=== PATIENT | female | born 2000 | race Caucasian/White ===

== ENCOUNTER 2020-08-04 23:14 | Emergency (ER) | payer OTHER ==
[~2020-08-04] VITALS: Ht 172.7 cm; Wt 103.0 kg
[2020-08-05 00:49] LABS: BASOPHILS % 0.5 % (0.0-2.0); CHLORIDE 107 mEq/L (98-107); EOSINOPHILS % 2.4 % (0.0-5.0); HEMATOCRIT. 36.1 % (36.0-48.0); HEMOGLOBIN. 12.5 g/dL (12.0-16.0); LYMPHOCYTES % 22.8 % (20.0-50.0); MEAN CORPUSCULAR HEMOGLOBIN 28.7 pg (28.0-32.0); MEAN PLATELET VOLUME 8.5 fl (7.4-10.4); NEUTROPHILS % 67.3 % (40.0-76.0); PLATELET 363 x1000/uL (130-400); RED BLOOD CELL COUNT 4.35 mill/uL (4.2-5.4); RED CELL DISTRIBUTION WIDTH 14.3 % (11.6-14.6)
[2020-08-05 03:45] VITALS: BP 116/79
== END 2020-08-05 03:45 | disposition home or self-care (01) ==
LOC: ER 23:14
DX: R20.0 Anesthesia of skin (principal); R42 Dizziness and giddiness
CPT/HCPCS: 36415; 73080; 80048; 81025; 83735; 85025; 99285; Z7610

== ENCOUNTER 2021-06-13 17:37 | Emergency (ER) | payer MEDICAID, OTHER ==
[~2021-06-13] VITALS: Ht 154.9 cm; Wt 104.0 kg
[2021-06-13 19:33] LABS: BASOPHILS % 0.4 % (0.0-2.0); EOSINOPHILS % 1.8 % (0.0-5.0); HEMATOCRIT. 41.2 % (36.0-48.0); HEMOGLOBIN. 13.7 g/dL (12.0-16.0); LYMPHOCYTES % 24.5 % (20.0-50.0); MEAN CORPUSCULAR HEMOGLOBIN 30.3 pg (28.0-32.0); MEAN CORPUSCULAR VOLUME 91.2 fL (81.0-99.0); MEAN PLATELET VOLUME 8.2 fl (7.4-10.4); MONOCYTES % 7.3 % (2.0-8.0); PLATELET 392 x1000/uL (130-400); RED BLOOD CELL COUNT 4.52 mill/uL (4.2-5.4); RED CELL DISTRIBUTION WIDTH 16.1 % (11.6-14.6)
[2021-06-13 19:45] LABS: CHLORIDE 111 mEq/L (98-107)
[2021-06-13 20:10] VITALS: BP 128/78
== END 2021-06-13 20:10 | disposition home or self-care (01) ==
LOC: ER 17:37
DX: R20.2 Paresthesia of skin (principal)
CPT/HCPCS: 36415; 80048; 82962; 85025; 99283

== ENCOUNTER 2021-06-16 21:05 | Emergency (ER) | payer MEDICAID, OTHER ==
[~2021-06-16] VITALS: Ht 154.9 cm; Wt 109.7 kg
[2021-06-16 21:12] VITALS: BP 114/81
[2021-06-16] MEDS ORDERED: ACETAMINOPHEN 325MG TABLET PO ONE (21:45)
[2021-06-16] MEDS ORDERED: LORAZEPAM 0.5MG TABLET PO ONE (21:45)
== END 2021-06-17 00:15 | disposition left against medical advice (07) ==
LOC: ER 21:05
DX: F41.9 Anxiety disorder, unspecified (principal); Z68.42 Body mass index [BMI] 45.0-49.9, adult
CPT/HCPCS: 99281

== ENCOUNTER 2021-12-17 04:11 | Inpatient (IN) | payer MEDICAID, OTHER ==
[~2021-12-17] VITALS: Ht 154.9 cm; Wt 103.0 kg
[2021-12-17 05:55] LABS: BASOPHILS % 0.4 % (0.0-2.0); EOSINOPHILS % 4.3 % (0.0-5.0); HEMATOCRIT. 38.5 % (36.0-48.0); HEMOGLOBIN. 12.9 g/dL (12.0-16.0); LYMPHOCYTES % 30.6 % (20.0-50.0); MEAN CORPUSCULAR HEMOGLOBIN 29.6 pg (28.0-32.0); MEAN CORPUSCULAR VOLUME 88.4 fL (81.0-99.0); MEAN PLATELET VOLUME 8.3 fl (7.4-10.4); MONOCYTES % 6.1 % (2.0-8.0); NEUTROPHILS % 58.6 % (40.0-76.0); PLATELET 367 x1000/uL (130-400); RED BLOOD CELL COUNT 4.35 mill/uL (4.2-5.4); RED CELL DISTRIBUTION WIDTH 14.4 % (11.6-14.6)
[2021-12-17 06:05] LABS: CHLORIDE 105 mEq/L (98-107)
[2021-12-17 06:26] LABS: CLARITY URINE CLEAR (CLEAR); COLOR URINE YELLOW (YELLOW); KETONES URINE NEGATIVE (NEGATIVE); LEUKOCYTE ESTERASE URINE TRACE (NEGATIVE); NITRITE URINE NEGATIVE (NEGATIVE); OCCULT BLOOD URINE TRACE (NEGATIVE); PH URINE 6.5 (4.5-8.0); PROTEIN URINE NEGATIVE (NEGATIVE); SPECIFIC GRAVITY URINE 1.026 (1.005-1.030); UROBILINOGEN URINE 0.2 E.U./dL (0.2-1.0)
[2021-12-17] MEDS ORDERED: KETOROLAC 30MG/ML VIAL IV STA (06:38)
[2021-12-17] MEDS ORDERED: METRONIDAZOLE 500 MG PREMIX 100 ML IV ONE (07:45)
[2021-12-17] MEDS ORDERED: LEVOFLOXACIN 750MG PREMIX 150 ML IV ONE (07:45)
[2021-12-17] MEDS ORDERED: DIPHENHYDRAMINE 50MG/ML VIAL IV ONE (09:45)
[2021-12-17] MEDS ORDERED: DOCUSATE SODIUM 100MG CAPSULE PO PRN (10:00)
[2021-12-17] MEDS ORDERED: PIPERACILLIN/TAZ 3.375G PREMIX 50 ML IV SCH (10:00)
[2021-12-17] MEDS ORDERED: ACETAMINOPHEN 325MG TABLET PO PRN ×2 (10:00)
[2021-12-17] MEDS ORDERED: KETOROLAC 15MG/ML VIAL IV PRN (10:00)
[2021-12-17] MEDS ORDERED: GUAIFENESIN 200MG/10ML SUGAR FREE UDC PO PRN (10:00)
[2021-12-17] MEDS ORDERED: ZOLPIDEM TARTRATE 5MG TABLET PO PRN (10:00)
[2021-12-17] MEDS ORDERED: IPRATROPIUM/ALBUTEROL 0.5-3(2.5)MG/3ML NEB NEB PRN (10:00)
[2021-12-17] MEDS ORDERED: MAGNESIUM/ALUMINUM HYDROXIDE/SIMETHICONE 30ML UDC PO PRN (10:00)
[2021-12-17] MEDS ORDERED: NITROGLYCERIN 0.4MG TABLET SL SL PRN (10:00)
[2021-12-17] MEDS ORDERED: ONDANSETRON HCL 4MG/2ML INJ IV PRN (10:00)
[2021-12-17] MEDS ORDERED: CLONIDINE 0.1MG TABLET PO PRN (10:00)
[2021-12-17] MEDS: PIPERACILLIN/TAZOBACTAM 3.375G in DEXT 5% WATER 50ML IV SCH ×4 (10:34→23:00)
[2021-12-17] MEDS: DEXT 5%/LACTATED RINGERS 1,000 ML IV SCH ×2 (10:42→23:20)
[2021-12-17 11:30] VITALS: BP 101/68
[2021-12-17 12:00] VITALS: BP 101/68
[2021-12-17 13:05] VITALS: BP 101/68
[2021-12-17] MEDS ORDERED: INFLUENZA VACCINE 05/PF 0.5 ML SYRINGE IM ONE (15:15)
[2021-12-17 16:00] VITALS: BP 94/58
[2021-12-17 19:53] VITALS: BP 107/65
[2021-12-18 05:20] VITALS: BP 110/65
[2021-12-18] MEDS: PIPERACILLIN/TAZOBACTAM 3.375G in DEXT 5% WATER 50ML IV SCH ×3 (06:00→21:08)
[2021-12-18 08:09] LABS: BASOPHILS % 0.3 % (0.0-2.0); EOSINOPHILS % 3.9 % (0.0-5.0); HEMATOCRIT. 36.1 % (36.0-48.0); HEMOGLOBIN. 12.4 g/dL (12.0-16.0); LYMPHOCYTES % 26.9 % (20.0-50.0); MEAN CORPUSCULAR HEMOGLOBIN 30.5 pg (28.0-32.0); MEAN CORPUSCULAR VOLUME 88.7 fL (81.0-99.0); MEAN PLATELET VOLUME 8.4 fl (7.4-10.4); MONOCYTES % 7.6 % (2.0-8.0); NEUTROPHILS % 61.3 % (40.0-76.0); PLATELET 346 x1000/uL (130-400); RED BLOOD CELL COUNT 4.07 mill/uL (4.2-5.4); RED CELL DISTRIBUTION WIDTH 14.3 % (11.6-14.6)
[2021-12-18] MEDS ORDERED: PANTOPRAZOLE SODIUM 40 MG/VIAL IV SCH (09:00)
[2021-12-18 10:38] LABS: PHOSPHORUS 4.3 mg/dL (2.5-4.9)
[2021-12-18] MEDS: DEXT 5%/LACTATED RINGERS 1,000 ML IV SCH (15:25)
[2021-12-18 18:47] LABS: CHLORIDE 106 mEq/L (98-107)
[2021-12-18 20:00] VITALS: BP 95/50
[2021-12-19] VITALS: BP 99/56
== END 2021-12-19 08:04 | disposition left against medical advice (07) ==
LOC: ER 04:11 → 6EST 09:38 → EDBEDREQ 09:41 → EDBEDREQTM 09:41 → ENRESERV 11:16
PROVIDERS: ADMIT Internal Medicine; ATTEND Internal Medicine
DX: K80.00 Calculus of gallbladder with acute cholecystitis without obstruction (principal); E44.0 Moderate protein-calorie malnutrition; Z53.29 Procedure and treatment not carried out because of patient's decision for other reasons; R73.03 Prediabetes; E66.01 Morbid (severe) obesity due to excess calories; Z68.41 Body mass index [BMI] 40.0-44.9, adult
CPT/HCPCS: 36415; 76705; 80053; 81003; 83036; 83735; 84100; 85025; 90686; 93970; 99285; C1893; C9113; J1200; J1885; J1956; J2543; J3490; J7060

== ENCOUNTER 2022-09-23 09:25 | Emergency (ER) | payer MEDICAID ==
[~2022-09-23] VITALS: Ht 152.4 cm; Wt 95.0 kg
[2022-09-23 09:41] VITALS: BP 113/84; PULSE 96; RESP 18; TEMP 98.5; O2SAT 99
[2022-09-23] MEDS ORDERED: LIDOCAINE HCL 1% 20ML VIAL (Pyxis) INJ INFIL ONE (10:15)
[2022-09-23] MEDS ORDERED: BACITRACIN ZINC OINT UDPKT TOP ONE (10:45)
== END 2022-09-23 11:23 | disposition home or self-care (01) ==
LOC: ER 09:25
DX: R68.89 Other general symptoms and signs (principal)
CPT/HCPCS: 99281; J3490

== ENCOUNTER 2023-12-15 21:09 | Emergency (ER) | payer MEDICAID, OTHER ==
[~2023-12-15] VITALS: Ht 152.4 cm; Wt 100.1 kg
[2023-12-15 21:24] VITALS: O2SAT 98
[2023-12-15] MEDS: TETANUS, DIPHTHERIA, PERTUSSIS VAC/PF 0.5ML (>10YR OLD) IM ONE (22:52)
[2023-12-15] MEDS: BACITRACIN ZINC OINT UDPKT TOP ONE (22:52)
[2023-12-15] MEDS: LIDOCAINE HCL/PF 1% 10 MG/ML 5ML VIAL INFIL ONE (22:52)
[2023-12-15] MEDS ORDERED: SULF1TAB48 MT (22:55)
[2023-12-15] MEDS ORDERED: CEPH500C2 MT (22:55)
[2023-12-15 23:06] VITALS: BP 108/63; PULSE 80; RESP 18; TEMP 36.72516; O2SAT 98
== END 2023-12-15 23:09 | disposition home or self-care (01) ==
LOC: ER 21:09
DX: L02.411 Cutaneous abscess of right axilla (principal)
CPT/HCPCS: 10060; 99283; J3490; Z7610 ×3; 90715

== ENCOUNTER 2024-03-06 16:40 | Emergency (ER) | payer MEDICAID ==
[~2024-03-06] VITALS: Ht 152.4 cm; Wt 100.0 kg
[~2024-03-06 16:40] MED LIST: CEPH500C2 MT; SULF1TAB48 MT
[2024-03-06 16:53] VITALS: O2SAT 100
[2024-03-06 21:12] LABS: BASOPHILS % 0.4 % (0.0-2.0); EOSINOPHILS % 2.7 % (0.0-5.0); HEMATOCRIT. 42.1 % (36.0-48.0); HEMOGLOBIN. 13.5 g/dL (12.0-16.0); LYMPHOCYTES % 26.1 % (20.0-50.0); MEAN CORPUSCULAR HEMOGLOBIN 28.8 pg (28.0-32.0); MEAN CORPUSCULAR HGB CONC 32.1 g/dL (31.0-37.0); MEAN CORPUSCULAR VOLUME 89.6 fL (81.0-99.0); MEAN PLATELET VOLUME 8.8 fl (7.4-10.4); MONOCYTES % 4.1 % (2.0-8.0); NEUTROPHILS % 66.7 % (40.0-76.0); PLATELET 343 x1000/uL (130-400); RED CELL DISTRIBUTION WIDTH 16.2 % (11.6-14.6); WHITE BLOOD COUNT 12.7 x1000/uL (4.5-11.0)
[2024-03-06 21:18] LABS: CHLORIDE 108 mEq/L (98-107); SODIUM 140 mEq/L (136-145)
[2024-03-06 21:19] LABS: CARBON DIOXIDE 24 mEq/L (21-32)
[2024-03-06 21:20] LABS: CALCIUM 9.1 mg/dL (8.7-10.4)
[2024-03-06 21:24] LABS: CREATININE 0.6 mg/dL (0.6-1.0); GLUCOSE 91 mg/dL (70-105)
[2024-03-06 21:26] LABS: UREA NITROGEN BLOOD 14 mg/dL (9-23)
[2024-03-06 21:38] LABS: HCG SCREEN NEGATIVE
[2024-03-06 22:32] LABS: CLARITY URINE CLOUDY (CLEAR); COLOR URINE YELLOW (YELLOW); GLUCOSE URINE NEGATIVE (NEGATIVE); KETONES URINE NEGATIVE (NEGATIVE); LEUKOCYTE ESTERASE URINE 1+ (NEGATIVE); NITRITE URINE POSITIVE (NEGATIVE); OCCULT BLOOD URINE 3+ (NEGATIVE); PH URINE 5.5 (4.5-8.0); PROTEIN URINE NEGATIVE (NEGATIVE); SPECIFIC GRAVITY URINE 1.025 (1.005-1.030)
[2024-03-06 22:43] LABS: BACTERIA URINE 1+; SQUAMOUS EPITHELIAL CELL URINE FEW /lpf (RARE/1+); WBC URINE 15-25 /hpf (0-2)
[2024-03-07 00:03] VITALS: BP 113/73; PULSE 101; RESP 18; TEMP 36.7; O2SAT 100
== END 2024-03-07 00:05 | disposition home or self-care (01) ==
LOC: ER 16:40
DX: N39.0 Urinary tract infection, site not specified (principal); N93.9 Abnormal uterine and vaginal bleeding, unspecified; Z79.899 Other long term (current) drug therapy
CPT/HCPCS: 36415; 76830; 76856; 80048; 81003; 84703; 85025; 86850; 86900; 99284